=== PATIENT | female | born 1960 | race Caucasian/White ===

== ENCOUNTER 2018-03-27 21:26 | Emergency (ER) | payer OTHER ==
[~2018-03-27] VITALS: Ht 157.5 cm; Wt 95.5 kg
[~2018-03-27 21:26] MED LIST: NORCO 325 MG-51 TAB PO
[2018-03-27 21:32] VITALS: BP 127/80; TEMP 98.3
[2018-03-27 22:02] LABS: COLLECTION METHOD CLEAN CATCH
[2018-03-27 22:16] LABS: PH 7 (5-8); SQUAMOUS EPITHELIAL 0-2 /hpf; URINE APPEARANCE Clear; URINE BACTERIA None Seen /hpf; URINE BILIRUBIN Negative (NEGATIVE); URINE BLOOD Negative (NEGATIVE); URINE COLOR Straw; URINE GLUCOSE Negative (NEGATIVE); URINE KETONE Negative (NEGATIVE); URINE LEUKOCYTE ESTERASE Negative (NEGATIVE); URINE NITRATE Negative (NEGATIVE); URINE PROTEIN(semi-quant) Negative (NEGATIVE); URINE RBC None Seen /hpf; URINE UROBILINOGEN Negative (NEGATIVE)
[2018-03-27 22:17] LABS: ALBUMIN 4.1 gm/dL (3.5-5.0); BILIRUBIN,TOTAL 0.4 mg/dL (0.0-1.0); C-REACTIVE PROTEIN 6.4 mg/dL (0.0-0.9); CREATININE, serum 0.68 mg/dL (0.52-1.25); POTASSIUM 3.5 mmol/L (3.4-5.0); TOTAL PROTEIN 7.6 gm/dL (6.4-8.2)
[2018-03-27 22:18] LABS: BASO # 0.1 (0.0-0.2); BASO % 0.4 % (0.0-2.0); EOS # 0.3 (0.0-0.7); EOS % 2.5 % (0-4.0); GRAN # 6.9 (1.4-6.5); GRAN % 61.2 % (42.2-75.2); HEMATOCRIT 42.2 % (37.0-47.0); HEMOGLOBIN 14.5 g/dl (12.5-16.0); LYMPH # 3.1 (1.2-3.4); LYMPH % 27.8 % (20.0-51.0); MEAN CELL VOLUME 86 fl (80.0-100.0); MEAN CORPUSCULAR HEMOGLOBIN 30 pg (27.0-31.0); MEAN CORPUSCULAR HGB CONC 34 g/dl (33.0-37.0); MEAN PLATELET VOLUME 10.9 fl (7.4-10.4); MONO # 0.9 (0.1-0.6); MONO % 7.7 % (1.7-9.3); PLATELET COUNT 218 K/mm3 (130-400); REDCELL DISTRIBUTION WIDTH-CV 13.1 % (11.5-14.5)
[2018-03-27] MEDS ORDERED: NORCO 325 MG-7.1 TAB PO (23:31)
[2018-03-27] MEDS ORDERED: CIPRO 500MG TA500 MG PO (23:31)
[2018-03-27] MEDS ORDERED: FLAGYL500 MG PO (23:31)
[2018-03-27 23:58] VITALS: PULSE 89
== END 2018-03-28 00:40 | disposition home or self-care (01) ==
LOC: COL.ER 21:26
PROVIDERS: Nurse Practitioner
DX: K57.32 Diverticulitis of large intestine without perforation or abscess without bleeding (principal); F17.210 Nicotine dependence, cigarettes, uncomplicated; Z87.19 Personal history of other diseases of the digestive system; Z88.6 Allergy status to analgesic agent
CPT/HCPCS: J1170; J2405; J7030; Q9967